=== PATIENT | male | born 1950 | race African-American/Black ===

== ENCOUNTER 2019-08-06 06:34 | Emergency (ER) | payer MEDICARE, MEDICAID ==
[~2019-08-06] VITALS: Ht 180.3 cm; Wt 125.3 kg
[2019-08-06] MEDS ORDERED: ACETAMINOPHEN 325MG TABLET PO ONE (07:15)
[2019-08-06 08:01] VITALS: BP 133/80
[2019-08-06] MEDS ORDERED: BACITRACIN ZINC OINT UDPKT TOP ONE (08:15)
== END 2019-08-06 08:15 | disposition home or self-care (01) ==
LOC: ER 06:34
DX: S60.512A Abrasion of left hand, initial encounter (principal); W22.8XXA Striking against or struck by other objects, initial encounter; R03.0 Elevated blood-pressure reading, without diagnosis of hypertension; Y93.89 Activity, other specified; Y92.89 Other specified places as the place of occurrence of the external cause
CPT/HCPCS: 73130; 99283

== ENCOUNTER 2024-06-07 08:27 | Emergency (ER) | payer MEDICARE, MEDICAID ==
[~2024-06-07] VITALS: Ht 182.9 cm; Wt 131.0 kg
[2024-06-07 08:37] VITALS: O2SAT 98
[2024-06-07] MEDS ORDERED: TRAM50TA3 MT (09:02)
[2024-06-07 09:12] VITALS: BP 125/81; PULSE 72; RESP 16; TEMP 37.00296; O2SAT 98
== END 2024-06-07 09:12 | disposition home or self-care (01) ==
LOC: ER 08:49
DX: S30.22XA Contusion of scrotum and testes, initial encounter (principal); Z98.890 Other specified postprocedural states; W23.1XXA Caught, crushed, jammed, or pinched between stationary objects, initial encounter; Y93.89 Activity, other specified; Y92.89 Other specified places as the place of occurrence of the external cause; Y99.8 Other external cause status
CPT/HCPCS: 99283

== ENCOUNTER 2024-10-29 10:09 | Emergency (ER) | payer MEDICAID, MEDICARE ==
[~2024-10-29] VITALS: Ht 185.4 cm; Wt 108.9 kg
[~2024-10-29 10:09] MED LIST: TRAM50TA3 MT
[2024-10-29 10:17] VITALS: TEMP 37.1; O2SAT 98
[2024-10-29 12:16] VITALS: TEMP 98.8
[2024-10-29] MEDS: ACETAMINOPHEN 325MG TABLET PO STA (12:16)
[2024-10-29] MEDS: CYCLOBENZAPRINE 10MG TABLET PO ONE (12:16)
[2024-10-29 12:22] LABS: BASOPHILS % 0.5 % (0.0-2.0); DIFFERENTIAL COMMENT 0; EOSINOPHILS % 1.4 % (0.0-5.0); HEMATOCRIT. 44.8 % (42.0-52.0); HEMOGLOBIN. 14.2 g/dL (14.0-18.0); LYMPHOCYTES % 34.1 % (20.0-50.0); MEAN CORPUSCULAR HEMOGLOBIN 24.1 pg (28.0-32.0); MEAN CORPUSCULAR HGB CONC 31.6 g/dL (31.0-37.0); MEAN CORPUSCULAR VOLUME 76.5 fL (80.0-94.0); MEAN PLATELET VOLUME 8.6 fl (7.4-10.4); MONOCYTES % 8.2 % (2.0-8.0); NEUTROPHILS % 55.8 % (40.0-76.0); PLATELET 138 x1000/uL (130-400); RED BLOOD CELL COUNT 5.87 mill/uL (4.7-6.1); RED CELL DISTRIBUTION WIDTH 15.9 % (11.6-14.6); WHITE BLOOD COUNT 4.5 x1000/uL (4.5-11.0)
[2024-10-29 12:29] LABS: CHLORIDE 110 mEq/L (98-107); SODIUM 143 mEq/L (136-145)
[2024-10-29 12:30] LABS: CALCIUM 9.2 mg/dL (8.7-10.4); CARBON DIOXIDE 26 mEq/L (21-32)
[2024-10-29 12:35] LABS: CREATININE 0.8 mg/dL (0.6-1.3); GLUCOSE 100 mg/dL (70-105); UREA NITROGEN BLOOD 10 mg/dL (9-23)
[2024-10-29 12:36] LABS: TROPONIN I HIGH SENSITIVITY 17 ng/L (3.0-53)
[2024-10-29] MEDS ORDERED: CYCL10TA21 PO (14:27)
[2024-10-29] MEDS ORDERED: CYCL10TA21 MT (14:46)
[2024-10-29 17:01] LABS: TROPONIN I HIGH SENSITIVITY 18 ng/L (3.0-53)
[2024-10-29 20:12] VITALS: BP 125/60; PULSE 73; RESP 18; O2SAT 97
== END 2024-10-29 20:13 | disposition home or self-care (01) ==
LOC: ER 10:32
DX: T14.8XXA Other injury of unspecified body region, initial encounter (principal); Z79.899 Other long term (current) drug therapy; Z90.89 Acquired absence of other organs; V49.9XXA Car occupant (driver) (passenger) injured in unspecified traffic accident, initial encounter; Y93.89 Activity, other specified; Y92.89 Other specified places as the place of occurrence of the external cause; Y99.8 Other external cause status
CPT/HCPCS: 36415; 71045; 80048; 84484; 85025; 93005; 99285

== ENCOUNTER 2025-05-28 11:50 | Emergency (ER) | payer MEDICAID ==
[~2025-05-28] VITALS: Ht 185.4 cm; Wt 135.0 kg
[~2025-05-28 11:50] MED LIST changes: +CYCL10TA21 MT
[2025-05-28 11:56] VITALS: BP 105/65; TEMP 36.9; O2SAT 98
[2025-05-28 11:58] VITALS: PULSE 81; RESP 18; O2SAT 100
== END 2025-05-28 16:19 | disposition home or self-care (01) ==
LOC: ER 11:50
DX: G89.29 Other chronic pain (principal); N50.812 Left testicular pain; N50.811 Right testicular pain; F10.90 Alcohol use, unspecified, uncomplicated; Z55.6 Problems related to health literacy; Z90.89 Acquired absence of other organs; Y90.9 Presence of alcohol in blood, level not specified
CPT/HCPCS: 76870; 93976; 99284